=== PATIENT | female | born 1995 | race American Indian/Alaskan Native ===

== ENCOUNTER 2016-10-10 15:25 | Inpatient (IN) | payer MEDICAID ==
[2016-10-10] MEDS ORDERED: MINERAL OIL PO PRN (15:34)
[2016-10-10] MEDS ORDERED: ePHEDrine SULFATE IV PRN ×2 (15:34→20:55)
[2016-10-10] MEDS ORDERED: SUBLIMAZE IV PRN (15:34)
[2016-10-10] MEDS ORDERED: ZOFRAN IV PRN (15:34)
[2016-10-10] MEDS ORDERED: BRETHINE SUB-Q PRN (15:41)
[2016-10-10] MEDS ORDERED: BRETHINE IVP PRN (15:41)
--- NOTE | 2016-10-10 15:45 | History and Physical Report ---
History of Present Illness Date of examination: 10/10/16 Date of admission: 10/10/16 15:25 Chief complaint: nonreassuring fht in the office at post-dates testing appointment. FHT with 2 minute late decel and several variables decels. Plan reviewed with Dr. Mccurdy to begin IOL today. History of present illness: EDC Confirmation: 10/04/2016 Past History : 1 Term Births: 0 Premature Births: 0 Living Children: 0 Para: 0 Mult. Births: 0 Prev : 0 Prev. attempt? 0 Aborta: 0 Elect. Ab: 0 Spont. 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 of genital herpes: no Partner hx. of genital herpes: no Infection History Comments: +GC Genetic History Congenital Heart Defect: Mom: no Dad: no Sharda Disease: Mom: no Dad: no Thalassemia Mom: no Dad: no Neural Tube Defect Mom: no Dad: no Down's Syndrome Mom: no Dad: no Allan-Sachs Mom: no Dad: no Sickle Cell Disease/Trait Mom: no Dad: no Hemophilia Mom: no Dad: no Muscular Dystrophy Mom: no Dad: no Cystic Fibrosis Mom: no Dad: no Marion Chorea Mom: no Dad: no Mental Retardation Mom: no Dad: no Fragile X Mom: no Dad: no Other Genetic/Chromosomal Disorder Mom: no Dad: no Child w/other defect Mom: no Dad: no Enviromental Exposures Xray Exposure: no Medication, drug, or alcohol use since LMP: no Chemical/Other Exposure: no Exposure to Cat Liter: no Hx of Parvovirus (Fifth Disease): no Active Medications (reviewed today): FORMULA 27-1 MG ORAL TABS ( VIT-FE FUMARATE-FA) 1 po q day as directed PNV TABS 29-1 TABS ( VIT-IRON CARBONYL-FA TABS) Current Allergies (reviewed today): No known allergies Past History Past Medical History: no pertinent history Past Surgical History: no surgical history - Obstetrical History Expected Date of Delivery: 10/04/16 Actual Gestation: 40 Week(s) 6 Day(s) : 1 Para: 0 Hx # Term Pregnancies: 0 Spontaneous Abortions: 0 Induced : 0 Number of Living Children: 0 Medications and Allergies Allergies Allergy/AdvReac Type Severity Reaction Status Date / Time No Known Allergies Allergy Unverified 09/06/14 18:58 Home Medications Medication Instructions Recorded Confirmed Last Taken Type Naproxen [Naprosyn TAB] 500 mg PO Q12H #20 tablet 09/06/14 Unknown Rx traMADol [Ultram 50 MG tab] 50 mg PO Q6HR PRN #12 tablet 09/06/14 Unknown Rx Active Meds: Active Medications Ephedrine Sulfate (Ephedrine Sulfate) 10 mg IV Q2M PRN PRN Reason: Hypotension Stop: 10/10/16 15:39 Fentanyl (Sublimaze) 100 mcg IV Q2H PRN PRN Reason: Labor Pain Ampicillin Sodium (Polycillin/Ns 1 Gm/50 Ml) 1 gm in 50 mls @ 100 mls/hr IV Q4HR OLIMPIA PRN Reason: Protocol Ampicillin Sodium (Polycillin/Ns 2 Gm/100 Ml) 2 gm in 100 mls @ 100 mls/hr IV ONCE ONE PRN Reason: Protocol Stop: 10/10/16 16:33 Lactated Ringer's (Lactated Ringers) 1,000 mls @ 125 mls/hr IV DIRECT OLIMPIA Oxytocin/Sodium Chloride (Pitocin/Ns 20 Unit/1000ml Drip) 20 units in 1,000 mls @ 125 mls/hr IV DIRECT OLIMPIA Oxytocin/Sodium Chloride (Pitocin/Ns 30 Unit/500ml) 30 units in 500 mls @ 4 mls /hr IV TITR OLIMPIA PRN Reason: Protocol Lidocaine (Xylocaine 2%) 20 ml INFILTRATI ONCE ONE Stop: 10/10/16 15:35 Mineral Oil (Mineral Oil) 30 ml PO QHS PRN PRN Reason: Constipation Ondansetron HCl (Zofran) 4 mg IV Q8H PRN PRN Reason: Nausea And Vomiting Terbutaline Sulfate (Brethine) 0.25 mg SUB-Q ONCE PRN PRN Reason: Hyperstimulation/Hypertonicity Stop: 10/10/16 15:35 Terbutaline Sulfate (Brethine) 0.25 mg IVP ONCE PRN PRN Reason: Hyperstimulation/Hypertonicity Stop: 10/10/16 15:35 Review of Systems All systems: negative - Physical Exam Breasts: Positive: normal Cardiovascular: Regular rate Lungs: Positive: Clear to auscultation, Normal air movement Abdomen: Positive: normal appearance, soft Genitourinary (Female): Positive: normal external genitalia, normal perenium Vulva: both: normal Vagina: Positive: normal moisture Uterus: Positive: normal size, normal contour Anus/Rectum: Positive: normal perianal skin Extremities: Positive: normal Deep Tendon Reflex Grade: Normal +2 - Obstetrical Uterine Contraction Monitor Mode: External Cervical Dilatation: 3 Cervical Effacement Percentage: 70 station: -1 Uterine Contraction Pattern: Irregular Uterine Tone Measurement Phase: Contraction Uterine Contraction Intensity: Moderate Results All other labs normal. Blood Type: B (03/14/2016) Rh Type: positive (03/14/2016) Rh Antibody Screen: negative (03/14/2016) Hgb: 12.7 (03/14/2016) Hct: 36.0 (03/14/2016) Rubella: immune (03/14/2016) RPR: nonreactive (03/14/2016) Hep B Surface Antigen: negative (03/14/2016) HIV: negative (03/14/2016) 1 Hour GTT: 96 (05/21/2016) Assessment and Plan 21y/o primip sent from office for IOL d/t non reassuring fht with late decels. GBS +, favorable cervix. EFW today 7#14oz, SHREE 20. Plan for pit induction. orders in EMR. - Patient Problems (1) 40 weeks gestation of Current Visit: Yes Status: Acute (2) GBS (group B Streptococcus carrier), +RV culture, currently Current Visit: Yes Status: Acute Plan to address problem: Ampicillin q4h until delivered (3) Non-reassuring electronic monitoring tracing Current Visit: Yes Status: Acute Plan to address problem: favorable cervix @ 40+6 weeks Pitocin IOL Cont efm/toco
[2016-10-10] MEDS ORDERED: XYLOCAINE 2% INFILTRATI ONE (16:00)
[2016-10-10] MEDS ORDERED: PITOCin/NS 20 UNIT/1000ML DRIP 20 UNITS/1,000 ML BAG IV SCH (16:00)
[2016-10-10] MEDS ORDERED: POLYCILLIN/NS 2 GM/100 ML 2 GM/100 ML BAG IV ONE (16:00)
[2016-10-10] MEDS: LACTATED RINGERS 1,000 ML IV SCH ×3 (16:42→23:49)
[2016-10-10] MEDS: PITOCin/NS 30 UNIT/500ML 30 UNITS/500 ML BAG IV SCH ×3 (16:43→18:29)
[2016-10-10 16:44] LABS: Hemoglobin 12.2 gm/dl (10.1-14.3); Mean Corpuscular HGB Conc 34 % (30-34); Mean Corpuscular Hemoglobin 32 pg (28-32); Mean Corpuscular Volume 95 fl (79-97); Platelet Count 167 K/mm3 (140-440); Red Cell Distribution Width 13.8 % (13.2-15.2); White Blood Count 8.9 K/mm3 (4.5-11.0)
--- NOTE | 2016-10-10 19:07 | Progress Note ---
Assessment and Plan - Patient Problems (1) 40 weeks gestation of Current Visit: Yes Status: Acute (2) GBS (group B Streptococcus carrier), +RV culture, currently Current Visit: Yes Status: Acute Plan to address problem: -s/p one dose of antibx. Second dose due at 2030 to 2100 pm. (3) Non-reassuring electronic monitoring tracing Current Visit: Yes Status: Acute Plan to address problem: -con't IOL. currently with Cat I tracing -all questions were addressed and answered Subjective - Subjective Date of service: 10/10/16 Principal diagnosis: 40.6 weeks for IOL Interval history: doing well. +pain with contractions but does not need pain meds at this time. Patient reports: movement normal, no new complaints, no loss of fluid, no vaginal bleeding Objective - Vital Signs Vital Signs: Vital Signs - 12hr 10/10/16 10/10/16 10/10/16 15:53 16:14 17:04 Temperature 98.4 F Pulse Rate 118 H 93 H Blood Pressure 111/81 123/70 Blood Pressure 111/81 [Left Arm] O2 Sat by Pulse 97 Oximetry 10/10/16 10/10/16 10/10/16 17:17 17:31 17:46 Temperature Pulse Rate 94 H 88 88 Blood Pressure 119/80 114/77 110/74 Blood Pressure [Left Arm] O2 Sat by Pulse Oximetry 10/10/16 10/10/16 10/10/16 18:02 18:18 18:31 Temperature Pulse Rate 75 82 79 Blood Pressure 118/74 114/68 112/71 Blood Pressure [Left Arm] O2 Sat by Pulse Oximetry 10/10/16 18:47 Temperature Pulse Rate 75 Blood Pressure 110/72 Blood Pressure [Left Arm] O2 Sat by Pulse Oximetry - Exam FHR: category 1 Cervical Dilatation: 4 Cervical Effacement Percentage: 70 station: -1 Uterine Contraction Pattern: Regular Uterine Tone Measurement Phase: Resting Uterine Contraction Intensity: Mild - Labs Labs: Laboratory Results - last 24 hr 10/10/16 10/10/16 16:00 16:00 WBC 8.9 RBC 3.80 Hgb 12.2 Hct 36.0 MCV 95 MCH 32 MCHC 34 RDW 13.8 Plt Count 167 Blood Type B POSITIVE Antibody Screen TNR LEANN Antibody Screen Negative
[2016-10-10] MEDS ORDERED: POLYCILLIN/NS 1 GM/50 ML 1 GM/50 ML BAG IV SCH (19:36)
[2016-10-10] MEDS ORDERED: ePHEDrine SULFATE ONE ×3 (20:27→22:33)
[2016-10-10] MEDS ORDERED: NARCAN 2 MG/2 ML IV PRN (20:55)
--- NOTE | 2016-10-10 20:55 | Anesthesia Consultation ---
Anesthesia Consult and Med Hx Date of service: 10/10/16 - Airway Anesthetic Teeth Evaluation: Good ROM Head & Neck: Adequate Mental/Hyoid Distance: Adequate Mallampati Class: Class II Intubation Access Assessment: Probably Good - Pulmonary Exam CTA: Yes - Cardiac Exam Cardiac Exam: RRR - Pre-Operative Health Status ASA Pre-Surgery Classification: ASA2 Proposed Anesthetic Plan: Epidural, Spinal - Pulmonary Hx Asthma: No - Cardiovascular System Hx Hypertension: No - Central Nervous System Hx Seizures: No Hx Psychiatric Problems: No - Endocrine Hx Renal Disease: No Hx Hypothyroidism: No Hx Hyperthyroidism: No - Hematic Hx Anemia: No Hx Sickle Cell Disease: No - Other Systems Hx Alcohol Use: No - Additional Comments Anesthesia Medical History Comments: +IUP AT 40.6
[2016-10-10] MEDS ORDERED: fentaNYL-BUPIV 2 MCG/ML-0.125% 200 MCG/100 ML BAG EPIDURAL SCH (21:00)
--- NOTE | 2016-10-10 21:54 | Progress Note ---
Assessment and Plan - Patient Problems (1) 40 weeks gestation of Current Visit: Yes Status: Acute (2) GBS (group B Streptococcus carrier), +RV culture, currently Current Visit: Yes Status: Acute (3) Non-reassuring electronic monitoring tracing Current Visit: Yes Status: Acute Subjective - Subjective Date of service: 10/10/16 Principal diagnosis: 40.6 weeks for IOL Interval history: Pt doing well s/p epidrual and pain is well controlled. AROM with clear fluid and ISE and IUPC placed w/o difficulty with clear fluid noted in the cath. Patient reports: movement normal, no new complaints, no loss of fluid, no vaginal bleeding Objective - Vital Signs Vital Signs: Vital Signs - 12hr 10/10/16 10/10/16 10/10/16 15:53 16:14 17:04 Temperature 98.4 F Pulse Rate 118 H 93 H Pulse Rate [ Left From Monitor] Respiratory Rate Blood Pressure 111/81 123/70 Blood Pressure 111/81 [Left Arm] O2 Sat by Pulse 97 Oximetry 10/10/16 10/10/16 10/10/16 17:17 17:31 17:46 Temperature Pulse Rate 94 H 88 88 Pulse Rate [ Left From Monitor] Respiratory Rate Blood Pressure 119/80 114/77 110/74 Blood Pressure [Left Arm] O2 Sat by Pulse Oximetry 10/10/16 10/10/16 10/10/16 18:02 18:18 18:31 Temperature Pulse Rate 75 82 79 Pulse Rate [ Left From Monitor] Respiratory Rate Blood Pressure 118/74 114/68 112/71 Blood Pressure [Left Arm] O2 Sat by Pulse Oximetry 10/10/16 10/10/16 10/10/16 18:47 19:02 19:16 Temperature Pulse Rate 75 77 80 Pulse Rate [ Left From Monitor] Respiratory Rate Blood Pressure 110/72 116/74 118/77 Blood Pressure [Left Arm] O2 Sat by Pulse Oximetry 10/10/16 10/10/16 10/10/16 19:31 19:52 19:57 Temperature Pulse Rate 78 81 74 Pulse Rate [ Left From Monitor] Respiratory Rate Blood Pressure 121/85 Blood Pressure [Left Arm] O2 Sat by Pulse 97 97 Oximetry 10/10/16 10/10/16 10/10/16 20:01 20:02 20:07 Temperature Pulse Rate 67 73 84 Pulse Rate [ Left From Monitor] Respiratory Rate Blood Pressure 118/76 Blood Pressure [Left Arm] O2 Sat by Pulse 97 98 Oximetry 10/10/16 10/10/16 10/10/16 20:12 20:15 20:16 Temperature Pulse Rate 70 76 74 Pulse Rate [ Left From Monitor] Respiratory Rate Blood Pressure 121/77 Blood Pressure [Left Arm] O2 Sat by Pulse 97 94 Oximetry 10/10/16 10/10/16 10/10/16 20:30 20:31 20:35 Temperature Pulse Rate 77 72 101 H Pulse Rate [ Left From Monitor] Respiratory Rate Blood Pressure 112/82 Blood Pressure [Left Arm] O2 Sat by Pulse 100 96 Oximetry 10/10/16 10/10/16 10/10/16 20:40 20:42 20:44 Temperature 98.4 F Pulse Rate 68 82 86 Pulse Rate [ 85 Left From Monitor] Respiratory 18 Rate Blood Pressure 110/76 107/74 Blood Pressure 110/76 [Left Arm] O2 Sat by Pulse 99 97 Oximetry 10/10/16 10/10/16 10/10/16 20:45 20:46 20:48 Temperature Pulse Rate 73 76 Pulse Rate [ Left From Monitor] Respiratory Rate Blood Pressure 110/75 106/69 Blood Pressure [Left Arm] O2 Sat by Pulse 97 Oximetry 10/10/16 10/10/16 10/10/16 20:50 20:52 20:54 Temperature Pulse Rate 87 75 78 Pulse Rate [ Left From Monitor] Respiratory Rate Blood Pressure 103/71 109/71 105/69 Blood Pressure [Left Arm] O2 Sat by Pulse 95 Oximetry 10/10/16 10/10/16 10/10/16 20:55 20:56 20:58 Temperature Pulse Rate 85 80 81 Pulse Rate [ Left From Monitor] Respiratory Rate Blood Pressure 105/68 104/67 Blood Pressure [Left Arm] O2 Sat by Pulse 97 Oximetry 10/10/16 10/10/16 10/10/16 21:00 21:05 21:08 Temperature Pulse Rate 72 69 70 Pulse Rate [ Left From Monitor] Respiratory Rate Blood Pressure 107/69 Blood Pressure [Left Arm] O2 Sat by Pulse 96 97 Oximetry 10/10/16 10/10/16 10/10/16 21:10 21:15 21:20 Temperature Pulse Rate 82 69 73 Pulse Rate [ Left From Monitor] Respiratory Rate Blood Pressure Blood Pressure [Left Arm] O2 Sat by Pulse 98 98 98 Oximetry 10/10/16 10/10/16 10/10/16 21:25 21:30 21:35 Temperature Pulse Rate 75 72 69 Pulse Rate [ Left From Monitor] Respiratory Rate Blood Pressure Blood Pressure [Left Arm] O2 Sat by Pulse 97 98 97 Oximetry 10/10/16 10/10/16 10/10/16 21:40 21:45 21:48 Temperature Pulse Rate 71 67 69 Pulse Rate [ Left From Monitor] Respiratory Rate Blood Pressure 111/66 Blood Pressure [Left Arm] O2 Sat by Pulse 97 97 Oximetry - Exam FHR: category 1 Cervical Dilatation: 5.5 Cervical Effacement Percentage: 95 station: -1 to 0 Uterine Contraction Pattern: Regular Uterine Tone Measurement Phase: Resting Uterine Contraction Intensity: Moderate - Labs Labs: Laboratory Results - last 24 hr 10/10/16 10/10/16 16:00 16:00 WBC 8.9 RBC 3.80 Hgb 12.2 Hct 36.0 MCV 95 MCH 32 MCHC 34 RDW 13.8 Plt Count 167 Blood Type B POSITIVE Antibody Screen TNR LEANN Antibody Screen Negative
--- NOTE | 2016-10-10 22:50 | Event Note ---
Date: 10/10/16 Called by nursing staff due to decels. Pt noted to be decreased by after epidural was given. Pt examined and cx is still unchanged. Pt advised that her labor is dysfunctional because after an hours of adequate contractions she has made very little cx and no change in the last hour. Pitocis d/c . Ephedrin was given and BP improved as well as tracing. I d/w operative delivery via c/ s and she still desires cyndi at this time. I stressed that currently the labor is dysfunctional and without the pitocin she will likely not have cx change however, if the tracing becomes cat II again w/o resolution with corrective measures again c/s would be recommended. Pt and family expressed understanding and questions were addressed and answered. I will have pt to sign c/s consents at this time and RN made aware of potential risk of c/s for intolerance should now cat I tracing become cat II/III and pt is still remote from delivery. Several minutes spent at beside discussing options with pt and her family.
[2016-10-11] MEDS ORDERED: ANCEF/STERILE WATER 2 GM/20 ML 2 GM/20 ML SYRINGE IV ONE (01:23)
[2016-10-11] MEDS ORDERED: BICITRA ONE (01:23)
[2016-10-11] MEDS ORDERED: REGLAN ONE (01:23)
[2016-10-11] MEDS ORDERED: PEPCID IV ONE (01:24)
[2016-10-11] MEDS ORDERED: XYLOCAINE MPF 2% ONE ×3 (01:43→02:13)
[2016-10-11] MEDS ORDERED: ZOFRAN ONE (01:56)
[2016-10-11] MEDS ORDERED: MORPHINE ONE (02:08)
[2016-10-11] MEDS ORDERED: WATER FOR IRRIG STERILE IR ONE (02:10)
[2016-10-11] MEDS ORDERED: NACL 0.9% IR ONE (02:10)
[2016-10-11] MEDS ORDERED: DIPRIVAN 10 MG/ML IV ONE ×2 (02:21→02:36)
[2016-10-11] MEDS ORDERED: SUBLIMAZE ONE (02:30)
[2016-10-11] MEDS ORDERED: METHERGINE IM ONE ×2 (02:32→05:52)
--- NOTE | 2016-10-11 03:19 | Operative Report ---
Operative Report Operative Report: Date of procedure: 10/11/2016 Pre-operative diagnosis: 41 weeks' gestation To be strep positive Failure to progress Post-operative diagnosis: Same +1+ meconium at the time of delivery Procedure name(s): Primary low transverse section via Pfannenstiel skin incision Surgeon: Dr. Mccurdy Chicken Tender: Certified surgical scrub outreach assistant Anesthesia: Epidural EBL: 700 mL Urine output: 500 mL of clear urine at the end of the procedure Fluids: 1500 mL Findings: Liveborn male infant weight 7 lbs. 9 oz. Apgars of 7 and 8 at one and 5 minutes 1+ meconium noted at time of delivery Grossly normal fallopian tubes and ovaries bilaterally Indications: Patient sent to the office for induction of labor due to having late decelerations on nonstress tests in the office today. Patient progressed approximately 5 cm 90% efface and -1-0 station. Patient's cervical exam remained unchanged for approximately 4 hours with cervical swelling noted in effacement decreasing to approximately 70%. It was also noted. As at this time that primary section was recommended due to dysfunctional labor and failure to progress. Patient agreed to section at this time. All risks benefits and alternatives were discussed with the patient. Consents were signed and placed on the chart. Procedure: Patient was taking to the operating room. Patient was then prepped and draped in sterile fashion after anesthesia was found to be adequate. A low transverse skin incision was made with the scalpel and carried down to the underlying layer of fascia with the Bovie. The fascia was then incised in the midline and this incision was extended bilaterally with the Bovie. The superior aspect of the fascia was grasped with Kuldeep clamps tented upward and dissected off of the anterior rectus muscles with the scalpel. In similar fashion the inferior aspect of the fascia was grasped with Kuldeep clamps tented upward and dissected off of the anterior rectus muscles. The rectus muscles were then bluntly divided in the midline. The peritoneum was identified and entered into sharply. The bladder blade was placed. The bladder flap was created using the Metzenbaum scissors. The bladder blade was replaced. A lower transverse uterine incision was made with the scalpel and extended bilaterally with the bandage scissors. Entry into the uterus yielded slightly stained meconium fluid. The 's head was then delivered atraumatically. The anterior shoulder and rest of delivered without difficulty. The umbilical cord was clamped x2. The cord was cut. The was then placed in sterile bassinet. The cord blood was collected. The placenta was manually extracted in its entirety. The uterus was exteriorized and cleared of all clots and debris. The uterine incision was closed using 0 Vicryl in a running locking fashion. A second imbricating layer of the same suture was then created. The posterior cul-de-sac was copiously irrigated. The uterus was returned to the abdomen. Tisseel placed along the uterine incision with excellent hemostasis noted The gutters were also irrigated. The anterior rectus muscles were reapproximated using 3-0 Vicryl. The anterior rectus fascia was reapproximated using 0 Vicryl in a running fashion. The subcuticular fat was reapproximated using 2-0 Vicryl in a running fashion. The skin was reapproximated with 4-0 Monocryl with subcutaneous stitch. The patient tolerated the procedure well. Sponge lap and needle counts were all correct x3. Patient was taken to the recovery room awake and in stable condition.
[2016-10-11] MEDS ORDERED: LANSINOH TP PRN (03:21)
[2016-10-11] MEDS ORDERED: TUCKS PAD TP PRN (03:21)
[2016-10-11] MEDS ORDERED: NARCAN 0.4 MG/1 ML IV PRN (03:21)
[2016-10-11] MEDS ORDERED: TORADOL IV PRN (03:21)
[2016-10-11] MEDS ORDERED: MORPHINE IV PRN ×2 (03:27)
--- NOTE | 2016-10-11 03:27 | Post Anesthesia Evaluation ---
- Post Anesthesia Evaluation Patient Participated: Yes Airway Patent: Yes Stable Respiratory Function: Yes Nausea/Vomiting: No Temp > 96.8F: Yes Pain Manageable: Yes Adequeate Hydration: Yes Anesthesia Complications: No Block Receding Appropriately: Yes Patient on Ventilator: No
[2016-10-11] MEDS ORDERED: BENADRYL IV PRN (03:30)
[2016-10-11] MEDS ORDERED: DEMEROL IV PRN (03:32)
[2016-10-11] MEDS ORDERED: SODIUM CHLORIDE FLUSH SYRINGE 10 ML IV NR (04:00)
[2016-10-11] MEDS ORDERED: BICITRA PO ONE (05:50)
[2016-10-11] MEDS ORDERED: ceFAZolin 2 GM in NACL 0.9% 100 ML IV ONE (05:50)
[2016-10-11] MEDS ORDERED: REGLAN IV NR (06:00)
[2016-10-11] MEDS ORDERED: PEPCID PO NR (06:00)
[2016-10-11] MEDS: ANCEF/NS 1 GM/50 ML 1 GM/50 ML BAG IV SCH ×2 (10:53→18:32)
[2016-10-11] MEDS ORDERED: D5LR 1,000 ML IV SCH (11:00)
[2016-10-11] MEDS ORDERED: SUDAFED PO PRN (13:57)
[2016-10-11] MEDS: NORCO 5/325 PO PRN ×2 (14:07→22:51)
[2016-10-11] MEDS: FEOSOL PO SCH (16:27)
[2016-10-11] MEDS: PRENATAL VITAMIN PO SCH (16:27)
[2016-10-11] MEDS: MOTRIN PO PRN (18:28)
[2016-10-11 21:46] LABS: Hematocrit 33.2 % (30.3-42.9); Hemoglobin 11.3 gm/dl (10.1-14.3)
[2016-10-12] MEDS: NORCO 5/325 PO PRN ×5 (05:39→23:45)
[2016-10-12] MEDS: MOTRIN PO PRN ×5 (05:40→23:44)
[2016-10-12] MEDS ORDERED: BOOSTRIX IM ONE (06:00)
[2016-10-12] MEDS: FEOSOL PO SCH (10:33)
[2016-10-12] MEDS: PRENATAL VITAMIN PO SCH (10:33)
--- NOTE | 2016-10-12 10:48 | Progress Note ---
Assessment and Plan patient doing well, c/o normal discomforts. encouraged use of pain medications as needed. Lochia scant, dressing removed - incision D&I. H&H stable 11.3/33.2, VSSAF. Encouraged increase activity and shower today. Continue postop pathway. - Patient Problems (1) delivery delivered Current Visit: Yes Status: Acute Subjective - Subjective Date of service: 10/12/16 Principal diagnosis: postop day #1 s/p primary c/s Interval history: EDC Confirmation: 10/04/2016 Past History : 1 Term Births: 0 Premature Births: 0 Living Children: 0 Para: 0 Mult. Births: 0 Prev : 0 Prev. attempt? 0 Aborta: 0 Elect. Ab: 0 Spont. 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 of genital herpes: no Partner hx. of genital herpes: no Infection History Comments: +GC Genetic History Congenital Heart Defect: Mom: no Dad: no Sharda Disease: Mom: no Dad: no Thalassemia Mom: no Dad: no Neural Tube Defect Mom: no Dad: no Down's Syndrome Mom: no Dad: no Allan-Sachs Mom: no Dad: no Sickle Cell Disease/Trait Mom: no Dad: no Hemophilia Mom: no Dad: no Muscular Dystrophy Mom: no Dad: no Cystic Fibrosis Mom: no Dad: no Gillett Chorea Mom: no Dad: no Mental Retardation Mom: no Dad: no Fragile X Mom: no Dad: no Other Genetic/Chromosomal Disorder Mom: no Dad: no Child w/other defect Mom: no Dad: no Enviromental Exposures Xray Exposure: no Medication, drug, or alcohol use since LMP: no Chemical/Other Exposure: no Exposure to Cat Liter: no Hx of Parvovirus (Fifth Disease): no Active Medications (reviewed today): FORMULA 27-1 MG ORAL TABS ( VIT-FE FUMARATE-FA) 1 po q day as directed PNV TABS 29-1 TABS ( VIT-IRON CARBONYL-FA TABS) Current Allergies (reviewed today): No known allergies Patient reports: appetite normal, voiding normally, pain well controlled, flatus , ambulating normally, no dizzy ambulation, no nauseated [place]: doing well, bottle feeding (breast and bottle feeding) Objective - Vital Signs Latest vital signs: Vital Signs Temp Pulse Resp BP 10/12/16 08:45 98.5 F 77 20 97/59 10/12/16 00:10 98.1 F 77 18 100/65 10/11/16 20:15 98.6 F 86 18 109/66 10/11/16 16:30 98.4 F 78 16 97/65 10/11/16 13:10 98.9 F 92 H 18 98/63 Intake and Output 10/11/16 10/12/16 10/12/16 22:59 06:59 14:59 Intake Total 920 1480 120 Output Total 1100 600 Balance -180 1480 -480 Intake: IV 800 1000 D5lr 1,000 ml @ 125 mls/ 800 1000 hr IV DIRECT OLIMPIA Rx#: [id number] Oral 120 480 120 Output: Urine 1100 600 Void 1100 600 Other: Total, Intake Amount 120 240 120 Total, Output Amount 400 600 # Voids Void 1 1 1 - Exam Breasts: Present: normal, Cardiovascular: Present: Regular rate Lungs: Present: Clear to auscultation, Normal air movement Abdomen: Present: normal appearance, soft, normal bowel sounds Uterus: Present: normal, firm, fundal height below umbilicus Extremities: Present: normal Incision: Present: normal, dry, intact
--- NOTE | 2016-10-13 06:47 | Discharge Summary ---
Providers - Providers Date of Admission: 10/10/16 15:25 Date of discharge: 10/13/16 (pt asks to d/c today if possible.) Attending physician: LLUVIA FRIED Primary care physician: LLUVIA FRIED Hospitalization Reason for admission: induction of labor Delivery: Procedure: primary low transverse Episiotomy: none Laceration: none Incision: dry, intact Other procedures: none complications: none Discharge diagnosis: IUP at term delivered [place] baby: male Hospital course: uncomplicated section after failed IOL Pt w/o complaint Request d/c today VSS FF below umb Lochia scant Incision D&I H& H Pt is asymptomatic Doing well s/p section P: d/c today with instructions RTO 1 week postop care and circ of NB. RX provided. Condition at discharge: Good Disposition: DC-01 TO HOME OR SELFCARE - Discharge Diagnoses (1) delivery delivered Status: Acute Comment: rto 1 week postop care Plan - Discharge Medications Prescriptions: Ibuprofen [Motrin] 800 mg PO Q8HR PRN #30 tablet PRN Reason: Pain Lidocain2.5%/Prilocai2.5% [Emla] 2 gm TP ONCE #1 tube oxyCODONE /ACETAMINOPHEN [Percocet 5/325] 1 tab PO Q4HR #30 tab - Provider Discharge Summary Activity: routine, no sex for 6 weeks, no heavy lifting 4 weeks, no strenuous exercise Diet: routine Instructions: routine Additional instructions: [] Smoking cessation referral if applicable(refer to patient education folder for contact #) [] Refer to [facility] Booklet Call your doctor immediately for: * Fever > 100.5 * Heavy vaginal bleeding ( >1 pad per hour) * Severe persistent headache * Shortness of breath * Reddened, hot, painful area to leg or breast * Drainage or odor from incision. * Keep incision clean and dry at all times and follow doctor's instructions regarding bathing/showering - Follow up plan Follow up: LLUVIA FRIED MD [Primary Care Provider] - 7 Days (Congratulations! Please call [phone] to schedule your postoperative visit and your son's circumcision. Bring the EMLA cream with you to his visit. Take your medication as prescribed. Call with concerns.)
[2016-10-13] MEDS: NORCO 5/325 PO PRN (09:33)
[2016-10-13] MEDS: MOTRIN PO PRN (12:11)
[2016-10-13 13:40] VITALS: BP 112/62
== END 2016-10-13 14:15 | disposition home or self-care (01) | DRG 765 ==
LOC: LD 15:25 → OB 10-11 04:42
PROVIDERS: ADMIT Obstetrics & Gynecology; ATTEND Obstetrics & Gynecology
PROC: 10D00Z1 Extraction of Products of Conception, Low, Open Approach (ICD-10-PCS; principal; 2016-10-11)
DX: O76 Abnormality in fetal heart rate and rhythm complicating labor and delivery (principal); O99.324 Drug use complicating childbirth; O99.824 Streptococcus B carrier state complicating childbirth; O77.0 Labor and delivery complicated by meconium in amniotic fluid; F12.90 Cannabis use, unspecified, uncomplicated; O62.1 Secondary uterine inertia; Z3A.40 40 weeks gestation of pregnancy; Z37.0 Single live birth
CPT/HCPCS: 36415; 85014; 85018; 85027; 86592; 86850; 86900; 86901; 90471; 90715; 99211; C9250; G0008; G0463; J0290; J0690; J1885; J2210; J2270; J2405; J2590; J2704; J2765; J3010; J7120; J7121

== ENCOUNTER 2019-05-04 22:58 | Emergency (ER) | payer SELFPAY ==
[2019-05-04 23:20] VITALS: BP 96/61
[2019-05-05] MEDS ORDERED: LIDOCAINE VISCOUS 2% 15 ML ORAL LIQD PO ONE (05:09)
[2019-05-05] MEDS ORDERED: ONDANSETRON 4 MG ODT TAB PO ONE (05:09)
[2019-05-05] MEDS ORDERED: ACETAMINOPHEN 500 MG TAB PO ONE (05:09)
[2019-05-05] MEDS ORDERED: AMOXICILLIN/K CLAV 875/125MG TAB PO ONE (05:09)
--- NOTE | 2019-05-05 05:33 | Emergency Department Report ---
ED General Adult HPI - General Chief complaint: Sore Throat Stated complaint: HEAD/THROAT PAIN Source: patient Mode of arrival: Ambulatory Limitations: No Limitations - History of Present Illness Initial comments: Patient is a 24-year-old AA female who presents to the ED with complete acute onset persistent severe sore throat, dysphagia, nasal and sinus congestion, dry cough, diffuse body aches and pains and headache for the last 2 days. Patient denies dizziness, nausea, vomiting, diarrhea, abdominal pain, chest pain, shortness of breath, change in vision, syncope or dysuria and urinary frequency and urgency. MD Complaint: sore throat, diffuse body aches and pains, dry cough and headache -: Sudden, days(s) (2) Location: head, mouth, chest Radiation: non-radiation Severity scale (0 -10): 7 Quality: aching, sharp Consistency: constant Improves with: none Worsens with: none Associated Symptoms: denies other symptoms, cough, headaches, loss of appetite. denies: confusion, chest pain, diaphoresis, fever/chills, malaise, nausea/vomiting, rash, seizure, shortness of breath, syncope, weakness Treatments Prior to Arrival: none - Related Data Previous Rx's Medication Instructions Recorded Last Taken Type Ibuprofen [Motrin] 800 mg PO Q8HR PRN #30 tablet 10/11/16 Unknown Rx Lidocain2.5%/Prilocai2.5% [Emla] 2 gm TP ONCE #1 tube 10/11/16 Unknown Rx oxyCODONE /ACETAMINOPHEN [Percocet 1 tab PO Q4HR #30 tab 10/11/16 Unknown Rx 5/325] Ibuprofen [Motrin] 600 mg PO Q8H PRN #20 tablet 05/05/19 Unknown Rx Lidocaine Viscous 2% 10 ml PO Q6H PRN #120 ml 05/05/19 Unknown Rx Penicillin V Potassium 500 mg PO Q6H #40 tablet 05/05/19 Unknown Rx methylPREDNISolone [Medrol 4MG 4 mg PO DAILY #21 tab.ds.pk 05/05/19 Unknown Rx DOSEPAK (21 tabs)] Allergies Allergy/AdvReac Type Severity Reaction Status Date / Time No Known Allergies Allergy Unverified 09/06/14 18:58 ED Review of Systems ROS: Stated complaint: HEAD/THROAT PAIN Other details as noted in HPI Constitutional: chills, fever, malaise Eyes: denies: eye pain, eye discharge, vision change ENT: throat pain, congestion. denies: ear pain Respiratory: cough. denies: shortness of breath, wheezing Cardiovascular: denies: chest pain, palpitations Endocrine: no symptoms reported Gastrointestinal: denies: abdominal pain, nausea, vomiting, diarrhea Genitourinary: denies: urgency, dysuria, discharge Musculoskeletal: denies: back pain, joint swelling, arthralgia Skin: denies: rash, lesions Neurological: headache. denies: weakness, paresthesias Psychiatric: denies: anxiety, depression Hematological/Lymphatic: denies: easy bleeding, easy bruising ED Past Medical Hx - Past Medical History Previous Medical History?: No Hx Hypertension: No Hx Diabetes: No Hx Deep Vein Thrombosis: No Hx Renal Disease: No Hx Sickle Cell Disease: No Hx Seizures: No Hx Asthma: No Hx HIV: No - Surgical History Past Surgical History?: No - Social History Smoking Status: Never Smoker Substance Use Type: Alcohol, Marijuana - Medications Home Medications: Home Medications Medication Instructions Recorded Confirmed Last Taken Type Ibuprofen [Motrin] 800 mg PO Q8HR PRN #30 tablet 10/11/16 Unknown Rx Lidocain2.5%/Prilocai2.5% [Emla] 2 gm TP ONCE #1 tube 10/11/16 Unknown Rx oxyCODONE /ACETAMINOPHEN [Percocet 1 tab PO Q4HR #30 tab 10/11/16 Unknown Rx 5/325] Ibuprofen [Motrin] 600 mg PO Q8H PRN #20 tablet 05/05/19 Unknown Rx Lidocaine Viscous 2% 10 ml PO Q6H PRN #120 ml 05/05/19 Unknown Rx Penicillin V Potassium 500 mg PO Q6H #40 tablet 05/05/19 Unknown Rx methylPREDNISolone [Medrol 4MG 4 mg PO DAILY #21 tab.ds.pk 05/05/19 Unknown Rx DOSEPAK (21 tabs)] ED Physical Exam - General Limitations: No Limitations General appearance: alert, in no apparent distress - Head Head exam: Present: atraumatic, normocephalic, normal inspection - Eye Eye exam: Present: normal appearance, PERRL, EOMI Pupils: Present: normal accommodation - ENT ENT exam: Present: normal exam, mucous membranes moist, TM's normal bilaterally, normal external ear exam, other (grossly congested nasal passages, erythematous oropharynx and tonsils) - Neck Neck exam: Present: normal inspection, full ROM, lymphadenopathy - Respiratory Respiratory exam: Present: normal lung sounds bilaterally. Absent: respiratory distress, wheezes, rales, chest wall tenderness, accessory muscle use, decreased breath sounds - Cardiovascular Cardiovascular Exam: Present: regular rate, normal rhythm, normal heart sounds. Absent: systolic murmur, diastolic murmur, rubs, gallop - GI/Abdominal GI/Abdominal exam: Present: soft, normal bowel sounds. Absent: tenderness, guarding, hyperactive bowel sounds, hypoactive bowel sounds, organomegaly - Extremities Exam Extremities exam: Present: normal inspection, full ROM, normal capillary refill - Back Exam Back exam: Present: normal inspection, full ROM. Absent: tenderness, CVA tenderness (R), CVA tenderness (L), muscle spasm, paraspinal tenderness - Neurological Exam Neurological exam: Present: alert, oriented X3, CN II-XII intact, normal gait, reflexes normal - Psychiatric Psychiatric exam: Present: normal affect, normal mood - Skin Skin exam: Present: warm, dry, intact, normal color. Absent: rash ED Course Vital Signs 05/04/19 23:18 Temperature 97.7 F Pulse Rate 77 Respiratory 16 Rate Blood Pressure 96/61 O2 Sat by Pulse 100 Oximetry ED Medical Decision Making - Medical Decision Making This is a 24-year-old female presented to the ED with common of acute onset persistent nasal and sinus congestion, frontal sinus pressure, severe sore throat with dysphagia, and a sinus headache, dry cough, diffuse body aches and pains for the last 2 days. In the ED, patient is alert and oriented 3 and is n ot in distress. Patient was treated for pain in the ED and discharged home on medications, was advised to return to the ED immediately if symptoms get worse. Patient was advised to follow-up with her primary care physician in 7-10 days for reevaluation. Patient was advised to return to the ED immediately if symptoms get worse. - Differential Diagnosis strep pharyngitis; URI; Bronchitis; Flu Critical care attestation.: If time is entered above; I have spent that time in minutes in the direct care of this critically ill patient, excluding procedure time. ED Disposition Clinical Impression: Acute upper respiratory infection Acute pharyngitis Qualifiers: Pharyngitis/tonsillitis etiology: other specified organisms Qualified Code(s): J02.8 - Acute pharyngitis due to other specified organisms Acute bronchitis Qualifiers: Bronchitis organism: other organism Qualified Code(s): J20.8 - Acute bronchitis due to other specified organisms Disposition: DC- TO HOME OR SELFCARE Is pt being admited?: No Does the pt Need Aspirin: No Condition: Stable Instructions: Acute Bronchitis (ED), Pharyngitis (ED), Upper Respiratory Infection (ED) Additional Instructions: Take medications with food, drink plenty of fluids and follow up with primary care physician in 7-10 days for reevaluation. Return to the ED immediately if symptoms get worse. Prescriptions: Lidocaine Viscous 2% 10 ml PO Q6H PRN #120 ml PRN Reason: Pain , Severe (7-10) methylPREDNISolone [Medrol 4MG DOSEPAK (21 tabs)] 4 mg PO DAILY #21 tab.ds.pk Ibuprofen [Motrin] 600 mg PO Q8H PRN #20 tablet PRN Reason: Pain Penicillin V Potassium 500 mg PO Q6H #40 tablet Referrals: [facility] [Outside] - 7-10 days Time of Disposition: 05:37 Print Language: TRISTANIAN
== END 2019-05-05 06:37 | disposition home or self-care (01) ==
LOC: ED 22:58
DX: J06.9 Acute upper respiratory infection, unspecified (principal); J02.9 Acute pharyngitis, unspecified; J20.9 Acute bronchitis, unspecified; F12.10 Cannabis abuse, uncomplicated; Z79.899 Other long term (current) drug therapy
CPT/HCPCS: Q0162